=== PATIENT | male | born 1965 | race Caucasian/White ===

== ENCOUNTER 2019-02-20 09:54 | Emergency (ER) | payer MEDICARE, MEDICAID ==
[~2019-02-20] VITALS: Ht 165.1 cm; Wt 63.5 kg
--- NOTE | 2019-02-20 10:15 | NUR ---
ED Nurse Note: Pt came in due to depression x 3 weeks. Pt reports throwing his psych medications donw the toilet (Zyprexa, Trazodone, Zoloft) and HIV medications. Has recent in his family. Denies SI. Pt is AAO ,x4 ambulate swith steady gait. No respiratory distress.
--- NOTE | 2019-02-20 11:20 | NUR ---
ED Nurse Note: Collected blood and sent to lab.
--- NOTE | 2019-02-20 11:25 | NUR ---
ED Nurse Note: Pt states he is hearing voices that tells him to jump in front of a car before going here. Denies SI at this time. RN explained to pt that he is safe in this hospital to not hurt himself or anyone and someone will come here to evaluate him. Pt verbalized understanding.
[2019-02-20 11:28] LABS: BASOPHILS % (AUTO) 0.5 % (0.0-2.0); HEMOGLOBIN 11.4 G/DL (14.2-18.0); LYMPHOCYTES % (AUTO) 10.5 % (20.0-45.0); MEAN CORPUSCULAR VOLUME 81 FL (80-99); MONOCYTES % (AUTO) 6.8 % (1.0-10.0); NEUTROPHILS % (AUTO) 82.1 % (45.0-75.0); PLATELET COUNT 170 K/UL (150-450); RED BLOOD COUNT 4.43 M/UL (4.70-6.10); RED CELL DISTRIBUTION WIDTH 14.8 % (11.6-14.8); WHITE BLOOD COUNT 5.5 K/UL (4.8-10.8)
[2019-02-20 11:36] VITALS: BP 122/80
[2019-02-20 11:42] LABS: ANION GAP 9 mmol/L (5-15); BLOOD UREA NITROGEN 10 mg/dL (7-18); CALCIUM 8.7 MG/DL (8.5-10.1); CARBON DIOXIDE 25 MMOL/L (21-32); CHLORIDE 105 MMOL/L (98-107); CREATININE 1.1 MG/DL (0.55-1.30); POTASSIUM 3.1 MMOL/L (3.5-5.1); SODIUM 139 MMOL/L (136-145)
[2019-02-20 11:48] LABS: ALANINE AMINOTRANSFERASE 38 U/L (12-78); ALBUMIN 2.8 G/DL (3.4-5.0); ALBUMIN/GLOBULIN RATIO 0.5 (1.0-2.7); ALKALINE PHOSPHATASE 116 U/L (46-116); ASPARTATE AMINO TRANSFERASE 58 U/L (15-37); BILIRUBIN,TOTAL 0.5 MG/DL (0.2-1.0)
--- NOTE | 2019-02-20 12:53 | Emergency Room Report ---
History of Present Illness General Chief Complaint: General Complaint Source: Patient Present Illness HPI Patient is a 53-year-old male presented after increased suicidal thoughts. Patient reports having prior history of schizophrenia. He states he has been hearing increased voices which tell him to harm himself. Patient states he does not use any drugs or drink alcohol. He reports having prior history of HIV. He states has been off of his medications for several weeks. He reports previously taking Zyprexa 20 mg at bedtime. He also reports taking HIV medications in the past. He denies any fever. Allergies: Coded Allergies: PENICILLINS (Verified Allergy, Unknown, 02/20/19) SULFA (SULFONAMIDE ANTIBIOTICS) (Verified Allergy, Unknown, 02/20/19) Patient History Past Medical History: see triage record Reviewed Nursing Documentation: PMH: Agreed; PSxH: Agreed Nursing Documentation-PMH Hx Cardiac Problems: No - HIV +, Pneumonia, AIDS History Of Psychiatric Problem: Yes - Schizophrenia, Major Depression Review of Systems All Other Systems: negative except mentioned in HPI Physical Exam Vital Signs Date Time Temp Pulse Resp B/P (MAP) Pulse Ox O2 Delivery O2 Flow Rate FiO2 02/20/19 10:05 98.1 107 18 93 Room Air 02/20/19 11:36 122/80 Sp02 EP Interpretation: reviewed, normal General Appearance: alert/responsive, no apparent distress, GCS 15, non-toxic Head: atraumatic Eyes: PERRL, lids + conjunctiva normal ENT: hearing intact, no angioedema Neck: supple/symm/no masses, no meningismus Respiratory: effort normal, no wheezing, chest symmetrical Cardiovascular: regular rate, rhythm, no edema Cardiovascular #2: 2+ carotid (R), 2+ carotid (L), 2+ dorsalis pedis (R), 2+ dorsalis pedis (L) Gastrointestinal: non-tender, no mass, non-distended, no rebound/guarding, normal bowel sounds Musculoskeletal: gait & station normal, strength & tone normal, normal ROM, non -tender Neurologic: normal inspection, CN II-XII intact, oriented x3, sensory intact, normal speech Skin: no rash, well hydrated Lymphatic: normal inspection Medical Decision Making Restraint Attestation I, Dr. Sauceda, the Treating physician, has assessed whether the patient is alert and oriented to person, place and time and has determined that the patient is clinically stable for discharge. Diagnostic Impression: Primary Impression: Psychosis Additional Impression: Substance abuse ER Course Patient presented for psychosis. Differential diagnoses include substance abuse, psychosis, bipolar disorder, depression, malingering. Because of complexity of patient's case laboratory testing and imaging studies were ordered. Patient initially denied using any drugs. Patient's laboratory testing was notable for urine drug screen positive for cocaine and amphetamine. Patient was given Zyprexa. Patient was noted to be awake and alert and states that he no longer felt like hurting himself. Patient was noted to be on multiple psychiatric medications and was given prescription for Zyprexa as well as trazodone and Zoloft.Patient does not appear to be in any distress. He appears to be stable capable of self-care. He was given prescription for Zyprexa as well as other psychiatric medications. He was advised to follow-up with outpatient mental health. Patient was to return if he had any change in his condition or other concerns. Labs Test 02/20/19 11:19 02/20/19 12:09 White Blood Count 5.5 K/UL (4.8-10.8) Red Blood Count 4.43 M/UL (4.70-6.10) Hemoglobin 11.4 G/DL (14.2-18.0) Hematocrit 36.0 % (42.0-52.0) Mean Corpuscular Volume 81 FL (80-99) Mean Corpuscular Hemoglobin 25.6 PG (27.0-31.0) Mean Corpuscular Hemoglobin Concent 31.6 G/DL (32.0-36.0) Red Cell Distribution Width 14.8 % (11.6-14.8) Platelet Count 170 K/UL (150-450) Mean Platelet Volume 7.0 FL (6.5-10.1) Neutrophils (%) (Auto) 82.1 % (45.0-75.0) Lymphocytes (%) (Auto) 10.5 % (20.0-45.0) Monocytes (%) (Auto) 6.8 % (1.0-10.0) Eosinophils (%) (Auto) 0.0 % (0.0-3.0) Basophils (%) (Auto) 0.5 % (0.0-2.0) Sodium Level 139 MMOL/L (136-145) Potassium Level 3.1 MMOL/L (3.5-5.1) Chloride Level 105 MMOL/L (98-107) Carbon Dioxide Level 25 MMOL/L (21-32) Anion Gap 9 mmol/L (5-15) Blood Urea Nitrogen 10 mg/dL (7-18) Creatinine 1.1 MG/DL (0.55-1.30) Estimat Glomerular Filtration Rate > 60 mL/min (>60) Glucose Level 108 MG/DL (74-106) Calcium Level 8.7 MG/DL (8.5-10.1) Total Bilirubin 0.5 MG/DL (0.2-1.0) Aspartate Amino Transf (AST/SGOT) 58 U/L (15-37) Alanine Aminotransferase (ALT/SGPT) 38 U/L (12-78) Alkaline Phosphatase 116 U/L (46-116) Total Protein 8.8 G/DL (6.4-8.2) Albumin 2.8 G/DL (3.4-5.0) Globulin 6.0 g/dL Albumin/Globulin Ratio 0.5 (1.0-2.7) Salicylates Level 0.5 ug/mL (2.8-20) Acetaminophen Level < 2 MCG/ML (10-30) Serum Alcohol < 3 mg/dL Urine Opiates Screen Negative (NEGATIVE) Urine Barbiturates Screen Negative (NEGATIVE) Phencyclidine (PCP) Screen Negative (NEGATIVE) Urine Amphetamines Screen Positive (NEGATIVE) Urine Benzodiazepines Screen Negative (NEGATIVE) Urine Cocaine Screen Positive (NEGATIVE) Urine Marijuana (THC) Screen Negative (NEGATIVE) Last Vital Signs Date Time Temp Pulse Resp B/P (MAP) Pulse Ox O2 Delivery O2 Flow Rate FiO2 02/20/19 11:36 97.9 76 20 122/80 95 Room Air Status: improved Disposition: HOME, SELF-CARE Condition: Stable Scripts Trazodone Hcl* (DESYREL*) 100 Mg Tablet 100 MG ORAL BEDTIME, #14 TAB Prov: Yohannes Sauceda MD 02/20/19 Sertraline Hcl* (ZOLOFT*) 100 Mg Tablet 100 MG ORAL DAILY, #14 TAB Prov: Yohannes Sauceda MD 02/20/19 Olanzapine (ZYPREXA) 20 Mg Tablet 20 MG ORAL QHS, #14 TAB 0 Refills Prov: Yohannes Sauceda MD 02/20/19 Yohannes aSuceda MD February 20, 2019 12:53
[2019-02-20 13:30] VITALS: BP 132/77
[2019-02-20] MEDS ORDERED: ZYPREXA20 MG ORAL (15:08)
[2019-02-20] MEDS ORDERED: ZOLOFT100 MG ORAL (15:08)
[2019-02-20] MEDS ORDERED: TRAZODONE HCL100 MG ORAL (15:08)
[2019-02-20 15:25] VITALS: BP 125/79
--- NOTE | 2019-02-20 15:25 | NUR ---
ER DISCHARGE NOTE: Patient is cleared to be discharged per ERMD, Denies SI. pt is aox4, on room air, with stable vital signs. pt was given dc, homeless resources and mental health resources and prescription instructions, pt was able to verbalize understanding, pt id band removed. pt is able to ambulate with steady gait. pt took all belongings.
== END 2019-02-20 15:25 | disposition home or self-care (01) ==
LOC: EMR 10:40
DX: F29 Unspecified psychosis not due to a substance or known physiological condition (principal); F19.10 Other psychoactive substance abuse, uncomplicated; F20.9 Schizophrenia, unspecified; Z88.2 Allergy status to sulfonamides; Z88.0 Allergy status to penicillin; B20 Human immunodeficiency virus [HIV] disease; F32.9 Major depressive disorder, single episode, unspecified
CPT/HCPCS: 36415; 80053; 80307; 85025; 99283; G0480; 80329